=== PATIENT | female | born 1980 | race Caucasian/White ===

== ENCOUNTER 2018-06-07 10:30 | Outpatient (RCR) | payer OTHER, SELFPAY ==
--- NOTE | 2018-05-10 15:03 | HP.PTEVAL_ITS ---
Patient's Visit Information CHAN CAMERON is a 37 year old F referred to Physical Therapy by Yovanny Moyer MD with a diagnosis of NECK PAIN, HEADACHES AND CERVICAL FACET ARTHROPATHY. Date of Evaluation: 05/10/18 Physical Therapist: Nadya Tijerina PT, Cert MDT - Visit Plan Frequency: 2-3x /Week Duration: 4-6 Weeks Plan: POSTURE CORRECTION/STRENGTHENING, INSTRUCTION IN APPROPRIATE BODY MECHANICS AND ACTIVITY MODIFICATIONS. SEEMA UE ROM, STRETCHING AND STRENGTHENING. HEP INSTRUCTION. 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 TAKING AN ON-LINE COURSE CURRENTLY. ON COMPUTER ABOUT 2-3 HOURS A DAY. Disability: NO. Present symptoms: RIGHT > LEFT NECK PAIN THAT RADIATES UP TO HER HEAD CAUSING HEADACHES. Present since: JAN 2018. Pain Scale: Worst - 7/10Least - 0/10. Currently: 08/27. Commenced as a result of: NO APPARENT REASON. Symptoms at onset: HEADACHES. Worse: ? Better: LYING ON A TENNIS BALL. MUSCLE RELAXERS BUT CAUSED INABLILTY TO FUNCTION SO STOPPED THEM. Disturbed sleep: YES - SOMETIMES. Previous history/Previous treatment: PT ABOUT 15 YEARS AGO. RECENT CHIROPRACTIC TREATMENTS FOR NECK BUT STARTED SEEING A CHIROPRACTOR ABOUT 4 YEARS AGO FOR HIP PRN. PATIENT REPORTS SOME TEMPORARY RELEIF FROM CHIROPRACTOR ONLY - SAW CHIROPRACTOR ABOUT ONCE A WEEK FOR TWO MONTHS THEN FAMILY DOCTOR ([facility]) REFERRED HER HERE. Dizziness: NO. Tinnitis: NO. Nausea: NO. Shortness of Breath: NO. Difficulty Swollowing: NO. Gait: NORMAL. Accidents: NO. Unexplained weight loss: NO. Imaging: NECK X-RAYS ABOUT APR 24 2018 - SHOWING ARTHRITIS. PMH/Recent major surgery: PSORIASIS. PLOF (Prior Level of Function): UNLIMITED. PATIENT REPORTS A DISTRACTING DULL ACHE IN HER HEAD THAT EFFECTS HER CONCENTRATION AT HOME AND AT WORK NOW. OTHER: PATIENT REPORTS SHE TAUGHT ON LINE ABOUT 8 YEARS. - Objective Sitting Posture/Standing Posture: POOR. FORWARD HEAD AND ROUNDED SHOULDERS. NO TORTICOLLIS. Active Correction of posture: BETTER. Other Observations: INDEP GAIT INTO PT WITHOUT DEVIATIONS NOTED. Motor deficit: MILD SEEMA SCAPULAR WEAKNESS. Sensory deficit: NO. ROM deficit: SEEMA UE'S WFL. Reflexes: NT. Du ral Signs: NEGATIVE SEEMA UE'S. Cervical Mvmt Loss: Flex: MIN. Pro: NIL. Ext: MIN TO MOD. Ret: MOD TO MEET. RSB: MOD. LSB: MOD. R Rot: MIN. L Rot: MIN. Postural strength: FAIR. Palpation: TENDERNESS WITH PALPATION ALONG OCCIPUT RIGHT. VERY TIGHT SEEMA UPPER AND MIDDLE TRAPS WITH LARGE TRIGGER POINTS SEEMA. TIGHT ALL THROUGHOUT CERVICAL MUSCULATURE. OTHER: CERVICAL DISTRACTION TESTING RESULTS IN TEMPORARY DECREASED HEAD PAIN. - Goals Goal 1:: DECREASE C/O HEAD AND NECK PAIN Goal Time Frame: 4-6 Weeks Goal 2:: IMPROVE SLEEP AND DRIVING FUNCTION Goal Time Frame: 4-6 Weeks Goal 3:: INSTRUCT IN PROPHYLAXIS Goal Time Frame: 4-6 Weeks - Rehabilitation Potential Rehabilitation Potential: Fair - Anticipated Interventions Patient/Client Instruction: Educate patient on: Condition, Plan of Care, Risk Factors, Benefits of Fitness Program For the Purpose of:: To improve self management Therapeutic Exercise to Include: Strength training, Body mechanics, Postural training, Active ROM, Scapular Strength/Stabilization For the Purpose of:: To decrease pain, To increase ROM, To improve muscle performance and motor function, To increase tolerance to activity/condition/position, To improve ability of physical actions for home/community/work/leisure Manual Therapy Techniques to Include: Functional dry needling, Soft tissue mobilization For the Purpose of:: To decrease pain, To decrease swelling/inflammation, To increase ROM, To improve nutrient delivery to tissue TENS: Yes IF ES: Yes Cryotherapy (ice pack, ice massage): Yes Thermo therapy (hot pack): Yes Ultrasound (thermal/non thermal): Yes Intermittent cervical traction: Yes For the Purpose of:: To decrease pain, To decrease swelling/inflammation, To increase ROM, To improve nutrient delivery to tissue Thank you for the opportunity to evaluate your patient. For Medicare and Medicare HMO plans, please review the plan of care and approve it. It will need to be FAXED BACK to us at [phone] for Medicare purposes. For Medicare only, by signing this I certify the plan of care. Please let me know if there are questions or concerns regarding this plan of care. Physician Signature: D ate:
--- OUTSIDE RECORDS SUMMARY | 2018-07-13 01:55 | XMS RPT_ITS ---
:1980 Author Organization OHIP Care Team Providers Name Role Phone Sanjeev Hoffman Attending Unavailable Joaquim, Gertrude D Primary Care Unavailable Sanjeev Hoffman Admitting Unavailable Sanjeev Hoffman Attending Unavailable [place], Gertrude D Primary Care Unavailable Mclennan Jose E A Attending Unavailable Joaquim, Gertrude D Primary Care Unavailable Otilio, Jose E A Admitting Unavailable Sanjeev Hoffman Attending Unavailable [place], Gertrude D Primary Care Unavailable Sanjeev Hoffman Admitting Unavailable Gunnar, Shlomo Attending Unavailable Joaquim, Gertrude D Primary Care Unavailable Gunnar, Shlomo Admitting Unavailable Newbill, Griffin Salazar Admitting Unavailable Newbill, Griffin Salazar Attending Unavailable Joaquim, Gertrude D Primary Care Unavailable Mclennan, Jose E A Attending Unavailable [place], Gertrude D Primary Care Unavailable Mclennan, Jose E A Admitting Unavailable Mclennan, Josee A Attending Unavailable [place], Gertrude D Primary Care Unavailable Tourlas, Yovanny Admitting Unavailable Tourlas, Yovanny Attending Unavailable [place], Gertrude D Primary Care Unavailable Tourlas, Yovanny Admitting Unavailable Tourlas, Yovanny Attending Unavailable Joaquim, Gertrude D Primary Care Unavailable Tourlas, Yovanny Admitting Unavailable Tourlas, Yovanny Attending Unavailable Joaquim, Gertrude D Primary Care Unavailable Tourlas, Jonathan Attending Unavailable Tourlas, Jonathan Referring Unavailable Tourlas, Jonathan Primary Care Unavailable PROBLEMS PROBLEMS No Problem Records FoundPROCEDURES PROCEDURES No Procedure Records FoundRESULTS RESULTS INITAL EVALUATION (1) Observed: 05/10/2018 Status: F Source: [place] - PT 4:36 PM [facility] [place] [facility] [address] [place] [address] / REHABILITATION SERVICES INITIAL EVALUATION MR#: [id number] Acct: [id number] Name: CHAN CAMERON Rep #: [id number] : 1980 37 From: Nadya Tijerina PT, Cert. MDT Referring Dr.: Yovanny Moyer MD Status: REG RCR Insurance: [facility] SELF PAY INSURANCE Patient's Visit Information CHAN CAMERON is a 37 year old F referred to Physical Therapy by Yovanny Moyer MD with a diagnosis of NECK PAIN, HEADACHES AND CERVICAL FACET ARTHROPATHY. Date of Evaluation: 05/10/18 Physical Therapist: Nadya Tijerina PT, Cert MDT - Visit Plan Frequency: 2-3x /Week Duration: 4-6 Weeks Plan: POSTURE CORRECTION/STRENGTHENING, INSTRUCTION IN APPROPRIATE BODY MECHANICS AND ACTIVITY MODIFICATIONS. SEEMA UE ROM, STRETCHING AND STRENGTHENING. HEP INSTRUCTION. 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 ON COMPUTER ABOUT 2-3 HOURS A DAY. Disability: NO. Present symptoms: RIGHT > LEFT NECK PAIN THAT RADIATES UP TO HER HEAD CAUSING HEADACHES. Present since: JAN 2018. Pain Scale: Worst - 7/10Least - 0/10. Currently: 10. Commenced as a result of: NO APPARENT REASON. Symptoms at onset: HEADACHES. Worse: ? Better: LYING ON A TENNIS BALL. MUSCLE RELAXERS BUT CAUSED INABLILTY TO FUNCTION SO STOPPED THEM. Disturbed sleep: YES - SOMETIMES. Previous history/Previous treatment: PT ABOUT 15 YEARS AGO. RECENT CHIROPRACTIC TREATMENTS FOR NECK BUT STARTED SEEING A CHIROPRACTOR ABOUT 4 YEARS AGO FOR HIP PRN. PATIENT REPORTS SOME TEMPORARY RELEIF FROM CHIROPRACTOR ONLY - SAW CHIROPRACTOR ABOUT ONCE A WEEK FOR TWO MONTHS THEN FAMILY DOCTOR ([facility]) REFERRED HER HERE. Dizziness: NO. Tinnitis: NO. Nausea: NO. Shortness of Breath: NO. Difficulty Swollowing: NO. Gait: NORMAL. Accidents: NO. Unexplained weight loss: NO. Imaging: NECK X-RAYS ABOUT APR 24 2018 - SHOWING ARTHRITIS. PMH/Recent major surgery: PSORIASIS. PLOF (Prior Level of Function): UNLIMITED. PATIENT REPORTS A DISTRACTING DULL ACHE IN HER HEAD THAT EFFECTS HER CONCENTRATION AT HOME AND AT WORK NOW. OTHER: PATIENT REPORTS SHE TAUGHT ON LINE ABOUT 8 YEARS. - Objective Sitting Posture/Standing Posture: POOR. FORWARD HEAD AND ROUNDED SHOULDERS. NO TORTICOLLIS. Active Correction of posture: BETTER. Other Observations: INDEP GAIT INTO PT WITHOUT DEVIATIONS NOTED. Motor deficit: MILD SEEMA SCAPULAR WEAKNESS. Sensory deficit: NO. ROM deficit: SEEMA UE'S WFL. Reflexes: NT. Dural Signs: NEGATIVE SEEMA UE'S. Cervical Mvmt Loss: Flex: MIN. Pro: NIL. Ext: MIN TO MOD. Ret: MOD TO MEET. RSB: MOD. LSB: MOD. R Rot: MIN. L Rot: MIN. Postural strength: FAIR. Palpation: TENDERNESS WITH PALPATION ALONG OCCIPUT RIGHT. VERY TIGHT SEEMA UPPER AND MIDDLE TRAPS WITH LARGE TRIGGER POINTS SEEMA. TIGHT ALL THROUGHOUT CERVICAL MUSCULATURE. OTHER: CERVICAL DISTRACTION TESTING RESULTS IN TEMPORARY DECREASED HEAD PAIN. - Goals Goal 1:: DECREASE C/O HEAD AND NECK PAIN Goal Time Frame: 4-6 Weeks Goal 2:: IMPROVE SLEEP AND DRIVING FUNCTION Goal Time Frame: 4-6 Weeks Goal 3:: INSTRUCT IN PROPHYLAXIS Goal Time Frame: 4-6 Weeks - Rehabilitation Potential Rehabilitation Potential: Fair - Anticipated Interventions Patient/Client Instruction: Educate patient on: Condition, Plan of Care, Risk Factors, Benefits of Fitness Program For the Purpose of:: To improve self management Therapeutic Exercise to Include: Strength training, Body mechanics, Postural training, Active ROM, Scapular Strength/Stabilization For the Purpose of:: To decrease pain, To increase ROM, To improve muscle performance and motor function, To increase tolerance to activity/condition/position, To improve ability of physical actions for home/community/work/leisure Manual Therapy Techniques to Include: Functional dry needling, Soft tissue mobilization For the Purpose of:: To decrease pain, To decrease swelling/inflammation, To increase ROM, To improve nutrient delivery to tissue TENS: Yes IF ES: Yes Cryotherapy (ice pack, ice massage): Yes Thermo therapy (hot pack): Yes Ultrasound (thermal/non thermal): Yes Intermittent cervical traction: Yes For the Purpose of:: To decrease pain, To decrease swelling/inflammation, To increase ROM, To improve nutrient delivery to tissue Thank you for the opportunity to evaluate your patient. For Medicare and Medicare HMO plans, please review the plan of care and approve it. It will need to be FAXED BACK to us at [phone] for Medicare purposes. For Medicare only, by signing this I certify the plan of care. Please let me know if there are questions or concerns regarding this plan of care. Physician Signature: Date: <Electronically signed by Nadya Tijerina PT, Cert. MDT> 05/10/18 1636 CC: Yovanny Moyer MD YASSINE Signed XR SPINE CERVICAL Observed: 04/22/2018 Status: F Source: [facility] COMP FLEX/EXT 5:16 PM [facility] REPOSITORY Exam Date/Time: 04/22/2018 17:30 EST Reason for Exam: Neck Pain Report STUDY: XR Spine Cervical Comp Flex/Ext; 04/22/2018 5:30 pm INDICATION: Neck Pain. COMPARISON: None. ACCESSION NUMBER(S): [id number] ORDERING CLINICIAN: Yovanny Moyer TECHNIQUE: 8 views of the cervical spine including AP, lateral, lateral flexion and extension views, open- mouth odontoid view and bilateral oblique views were obtained. FINDINGS: There is no evidence of acute fracture identified. There is straightening of the normal cervical lordosis, which may be positional in nature. The vertebral bodies are well aligned without evidence of subluxation. No prevertebral soft tissue swelling is present. The disc spaces are well preserved throughout without significant degenerative changes. Mild facet degenerative changes are seen throughout the cervical spine. No gross osseous neural foraminal narrowing is seen bilaterally. No abnormal motion is seen on the flexion and extension views. IMPRESSION: 1. No evidence of acute fracture. FINAL REPORT Dictated: 04/23/2018 9:36 am Jaime Knapp MD Signed (Electronic Signature): 04/23/2018 9:36 am Signed by: Jaime Knapp MD Technologist: ARTEMIO HPV HIGH RISK Collected: 02/24/2018 Status: F Source: [facility] 1:56 PM [facility] REPOSITORY TYPE CODE TESTS RESULT OUT OF RANGE REFERENCE UNITS LAB [id number](LO INC) Normal HPV High SEE REF LAB Risk Performed By: #### [id number] #### GENE Send Outs Subsection [address] [id number] IG PAP [id number] Collected: 02/24/2018 Status: F Source: [facility] 1:56 PM [facility] REPOSITORY TYPE CODE TESTS RESULT OUT OF RANGE REFERENCE UNITS LAB [id number](LO INC) Normal See Ref Lab Diagnosis: Report Performed By: #### [id number] #### GENE Send Outs Subsection [address] [place] [address] PATHOLOGY ([facility]) Observed: 02/24/2018 Status: F Source: [facility] 12:00 AM REPOSITORY FINAL GYNECOLOGIC CYTOLOGY REPORT [id number] SPECIMEN ADEQUACY Satisfactory for Evaluation. Endocervical cells/transformation zone component present. GENERAL CATEGORIZATION Negative for Intraepithelial Lesion or Malignancy DESCRIPTIVE DIAGNOSIS Shift in vaginal marissa suggestive of bacterial vaginosis. COMMENT Reviewed by a pathologist due to previous abnormal history. High Risk HPV testing was ordered and performed at [facility] Laboratory for the following high risk genotypes: 16/18/31/33/35/39/45/51/52/56/58/59/66/68. A negative result is a normal result. A positive result is an abnormal result. Genotype-specific testing for high risk HPV types 16/18/45 is available upon request dependent upon a positive high risk HPV result. High Risk HPV: Negative RELATED LABORATORY RESULTS Ordered by: ADABR Ord Date: 02/24/2018 Ord Time: 20:49 Test Collected Result Abnormal Range Units Specimen Name D&T Type HPV Negative NA MSC RNA, 8 High Risk The HPV test detects E6/E7 viral messenger RNA (mRNA) high- risk HPV genotypes 16,18,31,33,35,39,45,51,55,58,59,66, and 68 which are associated with cervical cancer and its precursor lesions. However, cross-reactions with other genotypes may occur. Results should be correlated with cytologic and histologic findings. Sensitivity may be affected by cellularity of specimen. CLINICAL HISTORY Comment: No LMP provided. SPECIMEN (A) SCREENING CERVICAL/ENDOCERVICAL THIN PREP VIAL Performed at [facility], [address] [place], [place] [address] Screened by: RODRÍGUEZ SIMMONS Leaf Coverer Signed Out by: TIM BARRIOS M.D. Reported: 02/26/2018 Performed By: #### SEMICONDUCTOR EQUIPMENT TECHNICIAN #### [facility] [address] [place] [address] US PELVIS NON-OB Observed: 07/07/2017 Status: C Source: [facility] COMPLETE 2:46 PM [facility] REPOSITORY Exam Date/Time: 07/07/2017 15:15 EDT Reason for Exam: POSTCOITAL BLEEDING;Other (please specify) Report EXAMINATION: Ultrasound pelvis complete and ultrasound ovarian duplex complete HISTORY: Postcoital bleeding with an IUD present. LEEP procedure done 04/22/2017. COMPARISON: None. TECHNIQUE: Abdominal and transvaginal images. Grayscale, color Doppler and spectral Doppler flow imaging. FINDINGS: The uterus measures 7.7 x 4.3 x 5.8 cm. No uterine mass is seen. There is a centrally located intrauterine device. There is a 1.5 x 0.6 x 1.7 cm hypoechoic ovoid structure measured within the endometrium and separate from the intrauterine device. The left ovary measures 3.6 x 2.1 x 2.1 cm with multiple small follicles. Arterial and venous Doppler flow is documented the left ovary with fairly homogeneous color flow. A dominant follicle is measured at 9 mm and appears complex. The right ovary measures 2.3 x 1.4 x 1.3 cm with multiple small follicles. Arterial and venous flow is documented to the right ovary. Color flow appears homogeneous. No adnexal mass is seen. There is no significant free fluid. IMPRESSION: 1. Centrally located intrauterine device. 2. Ovoid hypoechoic structure within the endometrium that is measured adjacent to the intrauterine device. This is of uncertain etiology, potentially a small blood clot or mass. 3. Normal-sized ovaries with small follicles present. There is a single dominant complex follicle on the left (subcentimeter). Ovarian flow is intact Exam Date/Time: 07/07/2017 15:15 EDT Report bilaterally. FINAL REPORT Dictated: 07/07/2017 4:44 pm Sonya Vaca MD Signed (Electronic Signature): 07/07/2017 4:44 pm Signed by: Sonya Vaca MD Technologist: BS Report last revised on 07/07/2017 16:44 EDT by Sonya Vaca MD US TRANSVAGINAL NON-OB Observed: 07/07/2017 Status: F Source: [facility] 2:46 PM [facility] REPOSITORY Exam Date/Time: 07/07/2017 15:15 EDT Reason for Exam: POST COITAL BLEEDING;Other (please specify) Report EXAMINATION: Ultrasound pelvis complete and ultrasound ovarian duplex complete HISTORY: Postcoital bleeding with an IUD present. LEEP procedure done 04/22/2017. COMPARISON: None. TECHNIQUE: Abdominal and transvaginal images. Grayscale, color Doppler and spectral Doppler flow imaging. FINDINGS: The uterus measures 7.7 x 4.3 x 5.8 cm. No uterine mass is seen. There is a centrally located intrauterine device. There is a 1.5 x 0.6 x 1.7 cm hypoechoic ovoid structure measured within the endometrium and separate from the intrauterine device. The left ovary measures 3.6 x 2.1 x 2.1 cm with multiple small follicles. Arterial and venous Doppler flow is documented the left ovary with fairly homogeneous color flow. A dominant follicle is measured at 9 mm and appears complex. The right ovary measures 2.3 x 1.4 x 1.3 cm with multiple small follicles. Arterial and venous flow is documented to the right ovary. Color flow appears homogeneous. No adnexal mass is seen. There is no significant free fluid. IMPRESSION: 1. Centrally located intrauterine device. 2. Ovoid hypoechoic structure within the endometrium that is measured adjacent to the intrauterine device. This is of uncertain etiology, potentially a small blood clot or mass. 3. Normal-sized ovaries with small follicles present. There is a single dominant complex follicle on the left (subcentimeter). Ovarian flow is intact Exam Date/Time: 07/07/2017 15:15 EDT Report bilaterally. FINAL REPORT Dictated: 07/07/2017 4:44 pm Sonya Vaca MD Signed (Electronic Signature): 07/07/2017 4:44 pm Signed by: Sonya Vaca MD Technologist: GILBERT CHLAMYDIA GC BY PCR Collected: 06/22/2017 Status: F Source: [facility] 4:48 PM [facility] REPOSITORY TYPE CODE TESTS RESULT OUT OF RANGE REFERENCE UNITS LAB [id number]( Not Detected LOINC) Normal Chlamydia by Not Detected PCR. Result Comment: Xpert CT/NG Assay performance has not been evaluated in patients less than 14 years of age. LAB [id number](LOINC) Not Detected Normal Gonorrhoeae by Not Detected PCR Result Comment: Xpert CT/NG Assay performance has not been evaluated in patients less than 14 years of age. Performed By: #### [id number] #### GENE Misc Micro SubSection , Observed: 06/22/2017 Status: F Source: [facility] C GENITAL 4:48 PM [facility] REPOSITORY Final Report: Rare growth of Streptococcus agalactiae (Group B) noted in Normal marissa isolated Performed By: #### [id number] #### GENE Microbiology Subsection [address] [place] [address] ALLERGIES ALLERGIES DATE TYPE / CODE NAME / CODE REACTION SEVERITY SOURCE Drug/226342 doxycycline [id number] Zoroastrian 003(SNOMED [facility] System Repository Drug/997091 No Known Zoroastrian 003(SNOMED Allergies [facility]) [facility] Repository ENCOUNTERS ENCOUNTERS ADMIT/DISCHARGE ACCOUNT NUMBER ADMITTING ENCOUNTER LOCATION SOURCE CLASS 05/12/2018 [id number] Ambulatory [facility] ding:PT Repository 05/04/2018/ [id number] [address] ding:[facility] racRoom: Repository Room 1 04/22/2018/ [id number] [address] ding:[facility] Repository 04/22/2018 [id number] Ambulatory [address] [place] [address] Repository 04/21/2018/ [id number] [address] ding:[facility] racRoom: Repository Room 1 02/24/2018/ [id number] Jose E Yañez [facility] Zoroastrian 018 [facility] ding:[facility] Repository 02/24/2018/ [id number] [address] [facility] om[facility] Repository CD:[id number] 02/24/2018 [id number] Ambulatory [address] [place] [address] Repository 12/30/2017/ [id number] Griffin Br[facility]ard [facility] [address] g:[facility] Repository 07/14/2017/ [id number] [facility] om: Repository CD:[id number] 07/07/2017/ [id number] Sanjeev Hoffman [address] ding:[facility] Health System Repository 07/06/2017/ [id number] Shlomo Maher [address] ding:[facility] racRoom: Repository Room 1 06/22/2017/ [id number] Sanjeev Hoffman [address] ding:[facility] Repository 06/22/2017/ [id number] [facility] [address] [place] [address] Health [facility] om: Room 5 Repository PAYERS PAYERS ENCOUNTER GUARANTOR PAYER SUBSCRIBER SOURCE 05/12/2018 CHAN N Primary CHAN N Hillary [id number] Insurance:MEDICAL CONLEYDOB: [facility] [id number] Repository [address]Hol: [phone]) [id number] [phone] () Date:[id number] [address] [place] [id number]: 05/12/2018 Secondary NOT GIVENUNK Hillary Insurance:SELF PAY [facility] Number: Effective Repository Date:2018-05-04 [facility]/22/2018 [facility]:Medical [facility] [id number] Repository [address] Number: [address] [place] [id number] [facility] [place] [id number]: Date:Plan Name:[facility] [id number]: () () 02/24/2018 [facility] Insurance:Medical CONLEYDOB[facility] [id number] Repository [address] Number: [address] [place] [id number] [place], [place] [id number]: Date:Plan Name:[facility] [id number]: () () 02/24/2018 Critical access hospital Insurance:Medical CONLEYDOB: [facility] [id number] Repository Number: [address] [facility] [id number] [place], [place] Date:Plan Name:[address] [id number]: () 07/14/2017 CHAN N Primary CHAN N Zoroastrian EBERTDOB: Insurance:1500 EBERTDOB: [facility] [id number] System [facility] Number: Effective [facility] Repository [address] [place] [address] Date:2017-06-[address] [place] [address] [id number]: [id number]: Name:CD:[id number] O () [address] [place] [address] ()Tel: [phone]: [phone] 07/07/2017 CHAN N Primary CHAN N Zoroastrian EBERTDOB: Insurance:Medical EBERTDOB: [facility] Mutual[facility] Number: [id number] [facility] [place] Date:2017-07-01 - [address] [place] [address] [id number]: [id number]: Name:Medical MutualPO (HP) [address] [place] [address] (HP)Tel: [phone]: ([phone] 07/06/2017 CHAN N Primary CHAN N Zoroastrian EBERTDOB: Insurance:1500 EBERTDOB: [facility] MEDICAL MUTUALPolicy [id number] Number: Effective [address] [facility]ository [facility] [place] Date:2017-07-06 - [facility] [place] [id number]: [id number]: Name:CD:[id number] O (HP) [address] [place] [address] ()Tel: [phone]: ([phone] 06/22/2017 CHAN N Primary CHAN N Zoroastrian EBERTDOB: Insurance:Medical EBERTDOB: [facility] Mutual[facility] Number: [id number] Repository [address], [place] Date:2017-06-22 - [place], [place] [id number]: [id number]: Name:Medical MutualPO (HP) [address] [place] [address] (HP)Tel: [phone]: [phone] 06/22/2017 CHAN N Primary CHAN N Zoroastrian EBERTDOB: Insurance:1500 EBERTDOB: [facility] [employer]ICAL MUTUALPolicy [id number] Number: Effective [address] Repository [address], [place] Date:2017-06-[address] [place] [address] [id number]: [id number]: Name:CD:[id number] O () [address], [place] ()Tel: [phone]: [phone]
--- NOTE | 2018-07-13 13:10 | HP.PT.NRP ---
HP - Discharge Summary (1) - Patient Information CHAN CAMERON was seen in my office for initial evaluation on 05/10/18. The following Plan of Care was established for this patient: Initial Frequency: 2-3x /Week Initial Duration: 4-6 Weeks - Anticipated Interventions Patient/Client Instruction: Educate patient on: Condition, Plan of Care, Risk Factors, Benefits of Fitness Program For the Purpose of:: To improve self management Therapeutic Exercise to Include: Strength training, Body mechanics, Postural training, Active ROM, Scapular Strength/Stabilization For the Purpose of:: To decrease pain, To increase ROM, To improve muscle performance and motor function, To increase tolerance to activity/condition/position, To improve ability of physical actions for home/community/work/leisure Manual Therapy Techniques to Include: Functional dry needling, Soft tissue mobilization For the Purpose of:: To decrease pain, To decrease swelling/inflammation, To increase ROM, To improve nutrient delivery to tissue TENS: Yes IF ES: Yes Cryotherapy (ice pack, ice massage): Yes Thermo therapy (hot pack): Yes Ultrasound (thermal/non thermal): Yes Intermittent cervical traction: Yes For the Purpose of:: To decrease pain, To decrease swelling/inflammation, To increase ROM, To improve nutrient delivery to tissue This patient was last seen in our office 06/08/18. Pertinent comments regarding their Physical therapy will appear below: This patient has not returned to Physical Therapy and is appropriate to return to MD for further follow-up as needed. At this point I will be discontinuing this patient from physical therapy. I would be happy to see this patient again in the future if found appropriate by the physician. Thank you! Nadya Tijerina, PT, Cert MDT
== END 2018-06-07 19:00 | disposition home or self-care (01) ==
LOC: PT 10:30
PROVIDERS: Family Provider Family Medicine; PCP Family Medicine; Referring Provider Family Medicine; Visit Provider Family Medicine
DX: M54.2 Cervicalgia (principal); R51 Headache; M46.92 Unspecified inflammatory spondylopathy, cervical region
CPT/HCPCS: 97012; 97035; 97110; 97140; 97161; 97530

== ENCOUNTER → 2020-07-17 09:01 | Outpatient (CLI) | payer OTHER, SELFPAY ==
--- NOTE | 2020-07-17 09:08 | RAD_ITS ---
STUDY: X-RAY - PELVIS AND LEFT HIP REASON FOR EXAM: Left hip pain for several months, no specific injury. TECHNIQUE: 2 views of the pelvis and hip. COMPARISON: None. FINDINGS: There is an intrauterine device. Normal bilateral iliac wings, sacroiliac joints and visualized sacrum. Normal bilateral superior and inferior pubic rami. There is mild cystic change adjacent to the pubic symphysis. Normal bilateral ischial tuberosities. Normal visualized femoral head. Normal acetabulum. Normal hip joint. RAD/HIP, UNI W/ Pelvis 2-3 Views IMPRESSION: Normal x-ray examination of the left hip. Electronically Signed: Ernst Del Cid MD at 11:40 EDT Tel , Service support ,
== END ==
DX: M25.552 Pain in left hip (principal)
CPT/HCPCS: 73502

== ENCOUNTER 2020-08-16 16:00 | Outpatient (RCR) | payer OTHER, SELFPAY ==
--- NOTE | 2020-07-24 07:27 | HP.PTEVAL_ITS ---
Patient's Visit Information CHAN CAMERON is a 39 year old F referred to Physical Therapy by AKIKO ALCALA with a diagnosis of Left Hip Pain. Date of Evaluation: 07/23/20 Physical Therapist: Cyn Andino DPT - Visit Plan Frequency: 2x /Week Duration: 4 Weeks Plan: Focus on LE and core strength/stabilization. HEP Given IE: clams, prone hip extn, bridge, TA contraction - Subjective Left hip and groin pain 8-9 weeks ago- ellip 3 days a week and then the hip pain got worse. Saw MD- said stop doing exercise 4-6 weeks and then start to ease back in. Has not done any exercise in the last few weeks- went back diagnosed with bursitis and then sent her to PT. Has not seen ortho only a PCP. Had an x- ray which were negative. Sleep is disturbed- wakes her up. Worst: 09/27 Agg: walking, stairs, squatting down, sitting for a long period of time, sleep Eases: Ibuprofen Best: -05/30. Describes pain as dull and achy but every once in awhile it shoots into the thigh. Pain is located in the groin and in the greater troch. Does not radiate past the knee. No N/T. No buckling of the leg. No back problems in the past. When she started the pain she increased her activity. 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 Varies shoes but has not noticed a difference- has not noticed anything to change. PMHx: none Meds: Ibuprofen. Has 4 kids ( 2- vaginal- 13 and 11). 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 - Objective Posture: FH, RS- can correct with verbal cues but does not maintain. Gait: moderate hip sway. SLS: increased pain the longer she stands on the left LE- increased hip drop- 5 [address] other foot down. HR/TR: able without incidence. Squat: poor mechanics- weight shift and reports pain. ROM: WFL in all planes. Strength: Core: fair minus, Shoulder: Flexion: 4/5, Abd: 4/5, Add: 4+/5, IR/ER: 4-/5 with pain, Knee/Ankle: 5/5 Clam: 4/5. Flex: HS: moderate, Gastroc: moderate, Piriformis: moderate. Special Test: LLD: negative, Pelvic Alignment: positive, Scour: negative, KAL: positive. Palpatoin: tender along greater troch and into the gluts to the sacrum - Goals Goal 1:: Patient will be I with HEP and progression Goal Time Frame: 4-6 Weeks Goal 2:: Patient will SLS for 30 sec without hip drop Goal Time Frame: 4-6 Weeks Goal 3:: Patient will report no pain for 1 week and will return to all normal ADL's/recreational activities Goal Time Frame: 4-6 Weeks Goal 4:: Patient will maintain proper posture t/o tx session to demo increased core s/s Goal Time Frame: 4-6 Weeks - Rehabilitation Potential Physical Therapy Diagnosis: Patient presents with hypomobility- she has decreased LE strength, core strength/stabilization, flex and muscular endurance leading to increased pain with ADL's and recreational actvities. Rehabilitation Potential: Good - Anticipated Interventions Patient/Client Instruction: Educate patient on: Benefits of Fitness Program Therapeutic Exercise to Include: Strength training, Endurance training, Balance training, Coordination, Agility training, Body mechanics, Postural training, Flexibilty training, Gait and locomotor training, Neuromotor development, Dynamic Lumbar Stabilization, Scapular Strength/Stabilization For the Purpose of:: To improve muscle performance and motor function TENS: Yes Thermo therapy (hot pack): Yes Ultrasound (thermal/non thermal): Yes Thank you for the opportunity to evaluate your patient. For Medicare and Medicare HMO plans, please review the plan of care and approve it. It will need to be FAXED BACK to us at [phone] for Medicare purposes. For Medicare only, by signing this I certify the plan of care. Please let me know if there are questions or concerns regarding this plan of care. Physician Sign ature: Date:
--- NOTE | 2020-08-16 16:54 | HP.PTREVAL ---
AKIKO ALCALA, It has been my pleasure to treat CHAN CAMERON over the last 8 visits for Left Hip Pain. Please see the progress note below for an update on the physical therapy plan of care! Subjective: Patient reports that she is making some progress with the shotgun technique but only about 30% improvement. She is still waking up at night and has pain throughout the day. Objective/Function: Posture: FH, RS- can correct with verbal cues but does not maintain. Gait: no deviation noted SLS:15 seconds with increased discomfort. ROM: WFL in all planes. Strength: Core: fair minus, Hip Flexion: 4/5, Abd: 4/5, Add: 4+/5, IR/ER: 4-/5 with pain, Knee/Ankle: 5/5 Clam: 4/5. Flex: HS: moderate, Gastroc: moderate, Piriformis: moderate. Special Test: LLD: negative, Pelvic Alignment: positive, Scour: negative, KAL: positive. Palpatoin: tender along greater troch and into the gluts to the sacrum Plan Plan: 08/16/2020: Subjective only 30% better- return to MD for further evaluation- continue therapy as recommended by MD. Focus on LE and core strength/stabilization. HEP Given IE: clams, prone hip extn, bridge, TA contraction Goals Goal 1:: Patient will be I with HEP and progression Goal Time Frame: 4-6 Weeks Goal Progress: Progressing Goal 2:: Patient will SLS for 30 sec without hip drop Goal Time Frame: 4-6 Weeks Goal Progress: Progressing Goal 3:: Patient will report no pain for 1 week and will return to all normal ADL's/recreational activities Goal Time Frame: 4-6 Weeks Goal Progress: Progressing Goal 4:: Patient will maintain proper posture t/o tx session to demo increased core s/s Goal Time Frame: 4-6 Weeks Goal Progress: Progressing Anticipated Interventions Patient/Client Instruction: Educate patient on: Benefits of Fitness Program Therapeutic Exercise to Include: Strength training, Endurance training, Balance training, Coordination, Agility training, Body mechanics, Postural training, Flexibilty training, Gait and locomotor training, Neuromotor development, Dynamic Lumbar Stabilization, Scapular Strength/Stabilization For the Purpose of:: To improve muscle performance and motor function TENS: Yes Thermo therapy (hot pack): Yes Ultrasound (thermal/non thermal): Yes Please do not hesitate to contact me at [phone] by phone or if you have questions or concerns regarding this new plan of care! Sincerely, MEGAN DonaldT
== END 2020-08-16 19:00 | disposition home or self-care (01) ==
LOC: PT 16:00
DX: M25.552 Pain in left hip (principal)
CPT/HCPCS: 97035; 97110; 97161; 97164

== ENCOUNTER → 2020-09-05 15:25 | Outpatient (CLI) | payer OTHER, SELFPAY ==
--- NOTE | 2020-09-05 15:36 | MRI_ITS ---
STUDY: MRI LEFT HIP REASON FOR EXAM: Lateral left hip pain radiating anteriorly for more than 5 months. TECHNIQUE: Standardized fat and water weighted pulse sequences were obtained in all 3 orthogonal planes. COMPARISON: Radiographs 07/17/2020. FINDINGS: Normal hip joint without articular joint space narrowing. Normal acetabulum. There is a tear of the anterosuperior labrum (proton-density sagittal images 14, 15). Normal femoral head. Normal femoral neck and intratrochanteric region. There is mild peritendinitis of the left gluteus minimus tendon (inversion recovery coronal image 15) without tendon tear. Normal gluteus medius and iliopsoas tendons and distal insertions. There is no trochanteric, iliopsoas or iliopectineal bursitis. Normal superior and inferior pubic rami. Normal pubic symphysis. Normal ischial tuberosity. Normal origin of the hamstring tendons. Normal visualized iliac wing, sacroiliac joint, and sacral ala. Normal visualized soft tissue structures of the pelvis. MRI/Lower Ext Joint Only (Routine) IMPRESSION: Left anterosuperior labral tear. Mild peritendinitis of the left gluteus minimus tendon. Electronically Signed: Ernst Del Cid MD at 7:40 EDT Tel , Service support ,
== END ==
DX: M25.552 Pain in left hip (principal)
CPT/HCPCS: 73721

== ENCOUNTER → 2020-09-21 09:43 | Outpatient (CLI) | payer OTHER, SELFPAY ==
--- NOTE | 2020-09-21 09:51 | RAD_ITS ---
PROCEDURE: Fluoroscopic guided Hip Injection DATE: 09/21/2020. INDICATION: Female, 39 years old. Left hip pain. Known left acetabular labral tear. PHYSICIAN: Bladimir Mims M.D. MEDICATIONS: 40 mg of KENALOG and 5 cc of marcaine 2.5% lidocaine administered subcutaneously for local anesthesia. ACCESS SITE: Left hip. NEEDLE: 22-gauge spinal needle. FLUOROSCOPY TIME (if supplied): (0:56) minutes/seconds FINDINGS: The risks, benefits, and alternatives to the procedure were explained to the patient. The specific risks of bleeding, infection, and neurovascular injury were detailed and accepted. Witnessed informed consent was obtained. A 22-gauge spinal needle was positioned under radiographic fluoroscopic localization. Approximately 2 cc of ISOVUE-300 instilled for localization purposes. Medication was then injected. The patient tolerated the procedure well without any immediate complications. RAD/Inj/Asp Khalif Jt Should/Hip/Knee IMPRESSION: 1. Successful fluoroscopic guided hip injection. Electronically Signed: Bladimir Mims MD at 12:19 EDT , Service support ,
== END ==
DX: S73.192A Other sprain of left hip, initial encounter (principal)
CPT/HCPCS: 20610; 77002

== ENCOUNTER 2021-03-22 09:30 | Outpatient (RCR) | payer OTHER, SELFPAY ==
--- NOTE | 2021-01-10 11:51 | HP.PTEVAL ---
Patient's Visit Information CHAN CAMERON is a 40 year old F referred to Physical Therapy by Dr. David West MD with a diagnosis of L hip labral repair. Date of Evaluation: 01/03/21 Physical Therapist: Tomas Hickey DPT - Visit Plan Frequency: 2-3x /Week Duration: 6 Weeks Plan: Progress per patient protocol. pt. to remain NWBing currently. Do not force ROM through pain/pinching. Progress WBing per protocol. Use of manual for IT band, hip flexor, quads and glute medius. - Subjective Pt. is here today for her initial evaluation with diagnosis of L hip labral repair. Pt. is currently 3 weeks out of surgery. Pt. arrives today with B crutches and NWBing on her LLE. Pt. reports being compliant with her WBing status. She reports being compliant with her CPM and doing her HEP as prescribed. 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 pt. is sleeping well, but reports being eager to get back to all work and recreational activities. Pt. denies pain and no N/T in either LE. Pt. reports she is not looking to get back into sports, but would like to get back into hiking, walking and recreational gym activities. She reports thinking originally hurting her leg on an elliptical. - Pain L anterior hip Pain Intensity (Out of 10): 0 Pain Intensity Range: 0, 2 - Objective POSTURE: PT. has good posture in stance. Maintains proper WBing. PALPATION: Pt. has tenderness at L hip flexor, rectus femoris tendons. Pt. has some IT band tenderness and glute med tenderness. NEURO: Pt. has normal sensation and normal DTR of bilateral Achilles and patellar tendons. ROM: L hip: flexion 95 deg, abd 30deg, ext 0deg. R hip: flexion 130deg, abd 45deg, ext 20deg. IR 35deg, ER 90deg. MMT: RLE 5/5 throughout. LLE: ankle 5/5 throughout; knee- ext 4/5, flexion 4+/5; hip- DNT due to surgery. GAIT: Pt. came back walking NWB on LLE with crutches, but ambulated with increased L hip flexion (hold leg off floor). I instructed her into flatfoot WBing to reduce hip flexor issues. - Balance/Special Test Scores Lower Extremity Functional Score: 10 - Goals Goal 1:: LTG: Pt. to be I with HEP. Goal Time Frame: 4-6 Weeks Goal 2:: STG: Pt. to sleep throughout the night without increase in symptoms. Goal Time Frame: 2-4 Weeks Goal 3:: STG: Pt. to have full PROM of L hip without increase in symptoms. Goal Time Frame: 2-4 Weeks Goal 4:: STG: Pt. to ambulate with full WBing without AD without increase in symptoms. Goal Time Frame: 2-4 Weeks Goal 5:: LTG: pt. to have at least 4+/5 strength throughout L hip musculature. Goal Time Frame: 6-8 Weeks - Rehabilitation Potential Physical Therapy Diagnosis: Pt. has signs and symptoms consistent with L hip labral repair with subsequent hypomobility, weakness, and difficulty with walking. Pt. would benefit from PT to address above limitations progressing back to all daily and recreational activities as tolerated. Rehabilitation Potential: Excellent - Anticipated Interventions Patient/Client Instruction: Educate patient on: Condition, Plan of Care, Risk Factors, Benefits of Fitness Program For the Purpose of:: To facilitate caregiver knowledge, To improve self management, To prevent re-injury, To improve ability to perform tasks related to life management, To improve tolerance to ADL's Therapeutic Exercise to Include: Strength training, Power training, Balance training, Postural training, Flexibilty training, Gait and locomotor training, Passive ROM, Active ROM, Dynamic Lumbar Stabilization For the Purpose of:: To decrease pain, To decrease swelling/inflammation, To increase ROM, To improve nutrient delivery to tissue, To increase oxygenation perfusion, To improve muscle performance and motor function, To increase tolerance to activity/condition/position, To improve ability of physical actions for home/community/work/leisure, To improve gait and locomotor functions, To improve health of tissue, To decrease soft tissue restriction, To increase flexibility/ROM Manual Therapy Techniques to Include: Mobilization, Passive ROM, Functional dry needling, Soft tissue mobilization For the Purpose of:: To decrease pain, To decrease swelling/inflammation, To increase ROM, To improve nutrient delivery to tissue Thank you for the opportunity to evaluate your patient. For Medicare and Medicare HMO plans, please review the plan of care and approve it. It will need to be FAXED BACK to us at [phone] for Medicare purposes. For Medicare only, by signing this I certify the plan of care. Please let me know if there are questions or concerns regarding this plan of care. Physician Signature: Date:
--- NOTE | 2021-03-22 12:40 | HP.PTREVAL ---
Dr. David West MD, It has been my pleasure to treat CHAN CAMERON over the last 18 visits for L hip labral repair. Please see the progress note below for an update on the physical therapy plan of care! Subjective: Pt reports she is seeing the doctor today, and will report back as to what the doctor says. Pt. reports begin 85% better overall. Pt. reports having some anterior hip pain with increased walking. Objective/Function: ROM: hip 20-0-134 abduction 54degrees, adduction 30 degrees ER 48 degrees, IR 40. STRENGTH: LEFT: hip: flexor 4, IR 4+, ER 4+, knee: flexors 5, extensors 5. GAIT: Slight IR of L hip with gait during swing phase. SQUAT : able to squat with good mechanics, no knee valgus. STAIRS: good mechanics, no use of rails Plan Plan: Pt to see doctor today, will report back if recommended to continue therapy. If not heard from within 1 week, will D/C PT. Balance/Gait/Functional tests - Balance/Special Test Scores Lower Extremity Functional Score: 74 Goals Goal 1:: LTG: Pt. to be I with HEP. Goal Time Frame: 4-6 Weeks Goal Progress: Goal Met Goal 2:: STG: Pt. to sleep throughout the night without increase in symptoms. Goal Time Frame: 2-4 Weeks Goal Progress: Goal Met Goal 3:: STG: Pt. to have full PROM of L hip without increase in symptoms. Goal Time Frame: 2-4 Weeks Goal Progress: Goal Met Goal 4:: STG: Pt. to ambulate with full WBing without AD without increase in symptoms. Goal Time Frame: 2-4 Weeks Goal Progress: Goal Met Goal 5:: LTG: pt. to have at least 4+/5 strength throughout L hip musculature. Goal Time Frame: 6-8 Weeks Goal Progress: Goal Met Anticipated Interventions Patient/Client Instruction: Educate patient on: Condition, Plan of Care, Risk Factors, Benefits of Fitness Program For the Purpose of:: To facilitate caregiver knowledge, To improve self management, To prevent re-injury, To improve ability to perform tasks related to life management, To improve tolerance to ADL's Therapeutic Exercise to Include: Strength training, Power training, Balance training, Postural training, Flexibilty training, Gait and locomotor training, Passive ROM, Active ROM, Dynamic Lumbar Stabilization For the Purpose of:: To decrease pain, To decrease swelling/inflammation, To increase ROM, To improve nutrient delivery to tissue, To increase oxygenation perfusion, To improve muscle performance and motor function, To increase tolerance to activity/condition/position, To improve ability of physical actions for home/community/work/leisure, To improve gait and locomotor functions, To improve health of tissue, To decrease soft tissue restriction, To increase flexibility/ROM Manual Therapy Techniques to Include: Mobilization, Passive ROM, Functional dry needling, Soft tissue mobilization For the Purpose of:: To decrease pain, To decrease swelling/inflammation, To increase ROM, To improve nutrient delivery to tissue Please do not hesitate to contact me at [phone] by phone or if you have questions or concerns regarding this new plan of care! Sincerely, MEGAN GambinoT
== END 2021-03-22 19:00 | disposition home or self-care (01) ==
LOC: PT 09:30
PROVIDERS: Referring Provider Orthopaedic Surgery Sports Medicine; Visit Provider Orthopaedic Surgery Sports Medicine
DX: M24.152 Other articular cartilage disorders, left hip (principal); M25.852 Other specified joint disorders, left hip
CPT/HCPCS: 97110; 97140; 97161; 97164

== ENCOUNTER 2022-06-23 17:00 | Outpatient (RCR) | payer BC, SELFPAY ==
--- NOTE | 2022-05-26 17:53 | HP.PTEVAL_ITS ---
Patient's Visit Information CHAN CAMERON is a 41 year old F referred to Physical Therapy by ROSA TODD with a diagnosis of R HIP TROCHANTERIC BURSITIS. Date of Evaluation: 05/26/22 Physical Therapist: Nadya Tijerina PT, Cert MDT - Visit Plan Frequency: 2-3x /Week Duration: 4-6 Weeks Plan: US X 6. CORE AND SEEMA HIP STRENGTH AND STABILITY EX. HEP INSTRUCTION. 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 Disability: NO. Present symptoms: PAIN ON OUTSIDE OF RIGHT HIP AND DOWN INTO TOP OF THIGH. Present since: summer. Pain Scale: WORST 5/10, LEAST 0/10. Currently: 04/29. Is it getting better, worse or staying the same: GETTING WORSE. Commenced as a result of: NO APPARENT REASON OTHER THAN A LOT OF WALKING AT [employer]. Symptoms at onset: SAME. Worse: LYING DOWN IN BED TO TRY TO SLEEP IN ANY POSITION OTHER THAN FLAT ON BACK, PROLONGED WALKING, PROLONGED SITTING. Better: IBUPROFEN, CHANGE OF POSITION. Disturbed sleep: YES. Previous history/Previous treatment: R HIP CORTISONE INJECTION BEGINNING OF JAN 2022 BY ROSA TODD, EQUIPMENT MAINT TECH - NO EFFECT. HASN'T TRIED ANYTHING ELSE. SHE REPORTS THAT IN HER OTHER HIP SHE HAD INJECTION, PT AND MRI LEADING TO SX FOR LABRAL TEAR. L HIP LABRAL TEAR FROM elliptical APPROX winter. NEAR FULL RECOVERY L HIP AFTER SURGERY BUT DOES STILL GET SOME PAIN BUT NOT LIMITED DUE TO L HIP. CHIROPRACTOR SINCE JAN 2022 - NE. Coughing/sneezing/straining: NEGATIVE. Gait: NORMAL BUT PAIN WITH PROLONGED WALKING. DENIES LIMPING. INCONTINENCE: NO. Accidents: NO. Unexplained weight loss: NO. Imaging: NORMAL R HIP X- RAY RECENTLY. PMH/Recent major surgery: PSORIASIS. OTHER: PATIENT REPORTS HER LAST APPT FOR THIS WITH ROSA WARNER WAS JAN 2022 AND SHE WAITED TO START PT DUE TO INSURANCE CHANGE AND HER SX'S HAVE WORSENED SINCE THEN. OTHER: STARTED SPINNING AND A SQUAT CHALLENGE WITH A FRIEND IN APR. - Objective Sitting/Standing Posture: POOR. NORMAL LORDOSIS AND NO RELEVANT LATERAL SHIFT. Active Correction of posture: NE. Other Observations: INDEP GAIT AND TRANSFERS WITH NO GROSS DEVIATION NOTED. Sensory deficit: SEEMA LE LIGHT TOUCH SENSATION GROSSLY INTACT AND SYMMETRICAL. ROM deficit: TIGHT SEEMA GASTROC SOLEUS COMPLEX'S. Motor deficit: SEEMA LE'S GROSSLY 5/5 WITH MMT'ING EXCEPT HIPS 4/5 SYMMETRICALLY. Dural Signs: NEGATIVE SEEMA LE'S. Lumbar mvmt loss: flex - NIL. ext - MIN. R SG - NIL. L SG - NIL. PATIENT DENIES PAIN WITH LUMBAR ROM TESTING ALL PLANES. Core strength: POOR. Palpation: PATIENT DENIES R HIP TENDERNESS. OTHER: INSTRUCTED PATIENT TO HOLD SPINNING AND SQUAT CHALLENGE UNTIL FURTHER ASSESSMENT AND DIRECTION FROM PHYSICAL THERAPY. - Balance/Special Test Scores Lower Extremity Functional Score: 71 - Goals Goal 1:: DECREASE C/O RIGHT HIP PAIN Goal Time Frame: 4-6 Weeks Goal 2:: IMPROVE SLEEP, PROLONGED SITTING AND PROLONGED WALKING FUNCTION. Goal Time Frame: 4-6 Weeks Goal 3:: INDEP HEP. Goal Time Frame: 4-6 Weeks - Anticipated Interventions Patient/Client Instruction: Educate patient on: Condition, Plan of Care, Risk Factors For the Purpose of:: To improve self management Therapeutic Exercise to Include: Strength training, Body mechanics, Postural training, Flexibilty training, Gait and locomotor training, Neuromotor development, In an aquatic setting, Dynamic Lumbar Stabilization For the Purpose of:: To decrease pain, To increase ROM, To improve muscle performance and motor function, To increase tolerance to activity/condition/position, To improve ability of physical actions for home/community/work/leisure, To improve gait and locomotor functions Cryotherapy (ice pack, ice massage): Yes Thermo therapy (hot pack): Yes Ultrasound (thermal/non thermal): Yes For the Purpose of:: To decrease pain, To improve nutrient delivery to tissue Thank you for the opportunity to evaluate your patient. For Medicare and Medicare HMO plans, please review the plan of care and approve it. It will need to be FAXED BACK to us at [phone] for Medicare purposes. For Medicare only, by signing this I certify the plan of care. Please let me know if there are questions or concerns regarding this plan of care. Physician Signature: Date:
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
== END 2022-06-23 19:00 | disposition home or self-care (01) ==
LOC: PT 17:00
DX: M70.61 Trochanteric bursitis, right hip (principal)
CPT/HCPCS: 97035; 97110; 97162; 97164; 97530

== ENCOUNTER → 2022-07-23 | Outpatient (CLI) | payer BC, SELFPAY ==
--- NOTE | 2022-07-23 16:26 | MRI_ITS ---
EXAM: MR RIGHT LOWER EXTREMITY WITHOUT INTRAVENOUS CONTRAST, HIP CLINICAL INDICATION: RT HIP TROCHANTERIC BURSITIS TECHNIQUE: Multiplanar and multisequence MR images of the right hip without intravenous contrast. This report was created using [employer] report [employer] technology. COMPARISON: None. FINDINGS: TENDONS: FLEXORS: Unremarkable. Intact. EXTENSORS/HAMSTRING: Unremarkable. Intact. ABDUCTORS: Unremarkable. Intact. ADDUCTORS: Unremarkable. Intact. ROTATORS: Unremarkable. Intact. MUSCLES: The gluteal tendons appear intact. FLUID: Unremarkable. No joint effusion. No trochanteric bursitis. LABRUM: Unremarkable. No evidence of a tear on this non-arthrogram exam. CARTILAGE: Unremarkable. Articular cartilage intact. BONES/JOINTS: Unremarkable. No femoral neck fracture. No avascular necrosis of the femoral head. No sacral insufficiency fracture. No suspicious bone marrow signal alteration. MRI/Lower Ext Joint Only (Routine) IMPRESSION: No evidence for right trochanter bursitis. Electronically Signed: Marcello Busch MD at 21:21 EDT ,
== END | disposition home or self-care (01) ==
DX: M70.61 Trochanteric bursitis, right hip (principal)
CPT/HCPCS: 73721

== ENCOUNTER → 2023-07-22 | Outpatient (CLI) | payer BC, SELFPAY ==
[2023-07-22 18:00] LABS: Internal QC Validated? YES +Cl - CLEAR BKGD; Pregnancy, Urine Negative Negative
[2023-07-22 18:01] LABS: Absolute Lymphocyte Count 2.17 X10^3/uL (0.83-4.51); Absolute Neutrophil Count 3.1 X10^3/uL (2.0-7.7); Basophil# 0.03 X10^3/uL; Basophil% 0.5 % (0-1); Eosinophil# 0.17 X10^3/uL; Eosinophils% 2.8 % (0-5); Hemoglobin 13.5 g/dL (12.0-15.0); Lymphocyte # 2.17 X10^3/ul (0.83-4.51); Lymphocyte % 35.5 % (19-41); Mean Corp Hgb Conc 32.9 g/dL (32-36); Mean Corpuscular Hgb 31.2 pg (27.0-32.0); Mean Corpuscular Volume 94.7 fL (81-99); Mean Platelet Vol. 9.9 fl (6.2-12.0); Monocyte# 0.64 X10^3/uL; Monocyte% 10.5 % (0-10); NRBC Flagged by Analyzer 0 % (0-5); Neutrophil # 3.08 X10^3/uL (2.7-7.7); Neutrophil % 50.4 % (47-70); Platelet Count 309 K/mm3 (150-450); RBC Distribution Width CV 13.2 % (11.6-14.6); Red Blood Count 4.33 M/mm3 (4.2-5.4); White Blood Count 6.1 K/mm3 (4.4-11.0)
[2023-07-22 18:57] LABS: ALB/GLOB Ratio 1.1 RATIO (0.9-2.4); AST(SGOT) 25 U/L (15-37); Alanine Aminotransfer ALT/SGPT 41 U/L (13-56); Albumin, Serum 3.7 g/dL (3.2-5.0); Alkaline Phosphatase 59 U/L (45-117); Anion Gap 4 (5-15); BUN 15 mg/dL (7-18); BUN/Creat Ratio 18.1 RATIO (10-20); CPK Total, Creatine Kinase 57 U/L (26-192); Chloride 108 mmol/L (98-107); Cholesterol 198 mg/dL (200); Creatinine, Serum 0.83 mg/dL (0.55-1.02); EST Glomerular Filtration Rate 80 mL/min (>60); Est Glom Filt Rate - Afr Amer 97 mL/min (>60); Globulin 3.5 g/dL (2.2-4.2); Glucose 89 mg/dL (74-106); High Density Lipoprotein 51 mg/dL; Potassium 3.9 mmol/L (3.5-5.1); Protein, Total 7.2 g/dL (6.4-8.2); Sodium Level 140 mmol/L (136-145); Triglycerides 174 mg/dL; Very Low Density Lipoprotein 35 mg/dL (5-40)
[2023-07-22 19:19] LABS: Hepatitis B Surface Antibody Reactive; Hepatitis B Surface Antigen Non-Reactive (Nonreactive); Hepatitis C Antibody Non-Reactive (Nonreactive)
[2023-07-24 14:09] LABS: Hepatitis B Core Ab Total Negative (Negative); QNTFERON TB Mitogen Value > 10.00 IU/mL (.); QNTFERON TB Nil Value 0 IU/mL (.); QNTFERON TB1+ Ag Value 0 IU/mL (.); QNTFERON TB2+ Ag Value 0 IU/mL (.); QNTIFERON TB Positive Criteria Negative (Negative)
[2023-07-26 19:06] LABS: ANA- Speckled Pattern >1:1280 (.); Anti-Nuclear Antibody Test Positive (.); Anti-dsDNA Ab <1 IU/mL (0-9)
== END | disposition home or self-care (01) ==
PROVIDERS: PCP Family Medicine; Referring Provider Dermatology; Visit Provider Dermatology
DX: L40.0 Psoriasis vulgaris (principal); Z79.622 Long term (current) use of Janus kinase inhibitor
CPT/HCPCS: 36415; 80053; 80061; 81025; 82550; 85025; 86038; 86225; 86480; 86704; 86706; 86803; 87340